=== PATIENT | female | born 1990 | race African-American/Black ===

== ENCOUNTER 2025-03-23 03:16 | Emergency (ER) | payer OTHER ==
[2025-03-23] MEDS: NS (Normal Saline) 0.9% 1,000 ML IV ONE (03:40)
[2025-03-23] MEDS: ACETAMINOPHEN *IV* 1,000 MG in IV 1 EA IV ONE (03:43)
[2025-03-23] MEDS: diphenhydrAMINE 50 MG/ML VIAL IV ONE (03:55)
[2025-03-23 04:23] LABS: BASO # 0.0 10^3/uL (0.0-0.2); BASO % 0.4 % (0.0-1.0); EOS # 0.1 10^3/uL (0.0-0.5); EOS % 0.9 % (0.0-3.0); LYMPH # 3.5 10^3/uL (1.5-5.0); LYMPH % 66.0 % (24.0-44.0); MONO # 0.5 10^3/uL (0.0-0.8); MONO % 9.2 % (2.0-8.0); NEUTROPHILS # 1.3 10^3/uL (1.5-8.5); NEUTROPHILS % 23.5 % (36.0-66.0); PLATELET COUNT, AUTOMATED 252 10^3/uL (150-450)
[2025-03-23 04:43] LABS: AMPHETAMINES LEVEL URINE NEGATIVE (NEGATIVE); BARBITURATES URINE NEGATIVE (NEGATIVE); BENZODIAZEPINES URINE NEGATIVE (NEGATIVE); CANNABINOIDS URINE NEGATIVE (NEGATIVE); COCAINE METABOLITE URINE NEGATIVE (NEGATIVE); METHADONE URINE NEGATIVE (NEGATIVE); OPIATES URINE NEGATIVE (NEGATIVE); PHENCYCLIDINE URINE NEGATIVE (NEGATIVE)
[2025-03-23 04:47] LABS: ALT/SGPT 12 U/L (7.0-40); AST/SGOT 24 U/L (<34); CALCIUM LEVEL 8.5 MG/DL (8.5-10.1); CARBON DIOXIDE LEVEL 24 MMOL/L (20-31); CHLORIDE LEVEL 106 MMOL/L (98-107); CREATININE FOR GFR 0.91 MG/DL (0.55-1.30); GLOMERULAR FILTRATION RATE 86.0 (>60); POTASSIUM SERUM 4.1 MMOL/L (3.5-5.1); SODIUM LEVEL 140 MMOL/L (136-145)
[2025-03-23 05:43] LABS: ETHYL ALCOHOL (ETHANOL) < 0.003 % (0.000-0.010)
[2025-03-23 06:15] VITALS: O2SAT 97
[2025-03-23 06:30] VITALS: TEMP 97.5; O2SAT 100
[2025-03-23 06:31] VITALS: BP 115/64
== END 2025-03-23 06:48 | disposition home or self-care (01) ==
LOC: M ED 03:16
DX: R51.9 Headache, unspecified (principal); R55 Syncope and collapse
CPT/HCPCS: 70450; 80048; 80076; 80307; 82077; 84443; 85025; 93005; 93041; 94760; 96365; 96366; 96375; 99285; J0131; J1200; J2765

== ENCOUNTER 2025-04-07 09:07 | Emergency (ER) | payer OTHER ==
[~2025-04-07] VITALS: Ht 167.6 cm; Wt 84.8 kg
[2025-04-07] MEDS: ACETAMINOPHEN 500 MG TAB PO ONE (10:16)
[2025-04-07 10:47] LABS: URINE PREG TEST NEGATIVE (NEGATIVE)
[2025-04-07 12:38] VITALS: BP 126/85; TEMP 98; O2SAT 100
== END 2025-04-07 12:40 | disposition home or self-care (01) ==
LOC: M ED 09:07
DX: S83.91XA Sprain of unspecified site of right knee, initial encounter (principal); S83.92XA Sprain of unspecified site of left knee, initial encounter; S80.01XA Contusion of right knee, initial encounter; S80.02XA Contusion of left knee, initial encounter; V03.10XA Pedestrian on foot injured in collision with car, pick-up truck or van in traffic accident, initial encounter; Y92.410 Unspecified street and highway as the place of occurrence of the external cause; Y93.89 Activity, other specified; Y99.9 Unspecified external cause status